=== PATIENT | female | born 1990 | race Caucasian/White ===

== ENCOUNTER → 2016-08-19 | Outpatient (CLI) | payer BC ==
--- NOTE | ~2016-08-19 | CT2 ---
[facility] A Service of [facility] RADIOLOGY TEXT RESULTS PATIENT: SUGEY GOLDSTEIN LOCATION: SCT : [birth year] UNIT #: [id number] AGE: [address]: JAYLEEN ROUSE MD SEX: F ORDER DR: [id number] [place] [id number] MR#: [id number] Acc #: [id number] NAME: SUGEY GOLDSTEIN : 1990 SEX: F STUDY DATE/TIME: 08/19/2016 12:15 UNIT: SCT ROOM: STUDY DESCRIPTION: CT Abd and Pelv W Cont Attending Physician: Jayleen Rouse M.D. Referring Physician: Jayleen Rouse M.D. Ordering Physician: Jayleen Rouse M.D. Primary Care Physician: Jayleen Rouse M.D. MEDICAL IMAGING REPORT This report is preliminary unless electronic signature is present. EXAM CT abdomen and pelvis with contrast. INDICATION Infraumbilical lower abdominal pain since 08/18/2016. PROCEDURE Contrast-enhanced CT of the abdomen and pelvis. 100 mL of Isovue-370. This CT exam was performed with one or more of the following radiation dose reduction techniques: automatic exposure control, adjustment of mA and/or kV according to patient size, and iterative reconstruction. COMPARISON 03/28/2010 FINDINGS ABDOMEN WITH CONTRAST: Included lung bases are clear. The liver, spleen, kidneys, adrenal glands, pancreas and gallbladder are unremarkable. The bowel loops are nondilated. The appendix is nondilated. There is no pericecal inflammatory change. PELVIS WITH CONTRAST: Several small follicles or cysts in the ovaries, largest is on the left measuring 2.1 cm. No significant pelvic fluid. No aggressive appearing bone lesion. IMPRESSION 1. No acute findings. 2. Appendix is nondilated. 3. Several small follicles in the ovaries with a 2.1 cm dominant follicle or small functional cyst on the left. [facility] A Service [facility] RADIOLOGY TEXT RESULTS PATIENT: SUGEY GOLDSTEIN LOCATION: SCT : 90 UNIT #: [id number] AGE: [address]: JAYLEEN ROUSE MD SEX: F ORDER DR: Dictated by... Sixto Alexander M.D. THIS IS AN ELECTRONICALLY VERIFIED REPORT Sixto Alexander M.D. at 08/21/2016 10:11 PM EED/chelsea TD: 08/19/2016 15:22 JOB #: [id number] MEDICAL IMAGING REPORT Page 1 of 1
== END | disposition home or self-care (01) ==
LOC: SCT 10:30
DX: R10.31 Right lower quadrant pain (principal)
CPT/HCPCS: 74177; Q9967